=== PATIENT | male | born 1965 | race Caucasian/White ===

== ENCOUNTER → 2016-12-02 | Outpatient (CLI) | payer OTHER ==
[2016-12-02 16:07] LABS: HEMATOCRIT 47.4 % (37.9-51.0); HEMOGLOBIN 16.3 g/dL (13.5-17.0); HGB HCT DIFFERENCE 1.5; MEAN CORPUSCULAR HEMOGLOBIN 31.2 pg (27.0-33.4); MEAN CORPUSCULAR HGB CONC 34.3 g/dL (32.0-36.0); MEAN CORPUSCULAR VOLUME 91 fl (80-97); RED BLOOD COUNT 5.22 10^6/uL (4.35-5.55); RED CELL DISTRIBUTION WIDTH 13.7 % (11.5-14.0); WHITE BLOOD COUNT 8.9 10^3/uL (4.0-10.5)
[2016-12-02 16:23] LABS: ALANINE AMINOTRANSFERASE 38 U/L (21-72); ALBUMIN 4.5 g/dL (3.5-5.0); ALKALINE PHOSPHATASE 76 U/L (38-126); ANION GAP 12 (5-19); ASPARTATE AMINO TRANSFERASE 20 U/L (17-59); BILIRUBIN,DIRECT 0.3 mg/dL (0.0-0.4); BILIRUBIN,TOTAL 1.1 mg/dL (0.2-1.3); BLOOD UREA NITROGEN 20 mg/dL (7-20); CALCIUM 9.5 mg/dL (8.4-10.2); CARBON DIOXIDE 25 mmol/L (22-30); CHLORIDE 104 mmol/L (98-107); CREATININE RESULT 0.92 mg/dL (0.52-1.25); GLUCOSE 118 mg/dL (75-110); POTASSIUM 4.1 mmol/L (3.6-5.0); TOTAL PROTEIN 7.3 g/dL (6.3-8.2)
== END ==
LOC: OD 14:58
PROVIDERS: ATTEND Obstetrics & Gynecology
DX: Z09 Encounter for follow-up examination after completed treatment for conditions other than malignant neoplasm (principal); Z86.19 Personal history of other infectious and parasitic diseases
CPT/HCPCS: 36415; 80053; 85027; 86256; 86663; 86664; 86665

== ENCOUNTER → 2017-04-27 | Outpatient (CLI) | payer OTHER ==
[2017-04-27 15:42] LABS: ABSOLUTE EOSINOPHILS # (AUTO) 0.1 10^3/uL (0.0-0.6); ABSOLUTE LYMPHOCYTES (AUTO) 1.6 10^3/uL (0.5-4.7); ABSOLUTE MONOCYTES (AUTO) 0.7 10^3/uL (0.1-1.4); ABSOLUTE NEUT (AUTO) 5.9 10^3/uL (1.7-8.2); BASOPHILS % (AUTO) 0.3 % (0-2); HEMATOCRIT 46.9 % (37.9-51.0); HEMOGLOBIN 16.3 g/dL (13.5-17.0); LYMPHOCYTES % (AUTO) 19.1 % (13-45); MEAN CORPUSCULAR HEMOGLOBIN 31.6 pg (27.0-33.4); MEAN CORPUSCULAR HGB CONC 34.8 g/dL (32.0-36.0); MEAN CORPUSCULAR VOLUME 91 fl (80-97); RED BLOOD COUNT 5.17 10^6/uL (4.35-5.55); RED CELL DISTRIBUTION WIDTH 13.8 % (11.5-14.0); SEGMENTED NEUTROPHILS % (AUTO) 71.6 % (42-78); WHITE BLOOD COUNT 8.2 10^3/uL (4.0-10.5)
[2017-04-27 16:04] LABS: ALANINE AMINOTRANSFERASE 39 U/L (21-72); ALBUMIN 4.4 g/dL (3.5-5.0); ALKALINE PHOSPHATASE 79 U/L (38-126); ANION GAP 12 (5-19); ASPARTATE AMINO TRANSFERASE 22 U/L (17-59); BILIRUBIN,DIRECT 0.3 mg/dL (0.0-0.4); BLOOD UREA NITROGEN 23 mg/dL (7-20); CALCIUM 9.8 mg/dL (8.4-10.2); CARBON DIOXIDE 25 mmol/L (22-30); CHLORIDE 106 mmol/L (98-107); CREATININE RESULT 0.98 mg/dL (0.52-1.25); GLUCOSE 85 mg/dL (75-110); POTASSIUM 4.2 mmol/L (3.6-5.0); TOTAL PROTEIN 6.8 g/dL (6.3-8.2)
== END ==
LOC: OD 14:38
PROVIDERS: ATTEND Obstetrics & Gynecology
DX: K52.9 Noninfective gastroenteritis and colitis, unspecified (principal)
CPT/HCPCS: 36415; 80053; 83690; 85025; 87045; 87177; 87205; 87493

== ENCOUNTER 2018-12-12 07:30 | Day surgery (SDC) | payer OTHER ==
[~2018-12-12 07:30] MED LIST: VERAPAMIL HCL 5 MG, LIDOCAINE HCL/PF 4 ML, NORMAL SALINE 12 ML, NITROGLYCERIN/D5W 0.4 M... IV PRN
[2018-12-12] MEDS ORDERED: LIDOCAINE 1% INJ-PF (10 MG/ML) 30 ML SDV ONE (08:29)
[2018-12-12] MEDS ORDERED: HEPARIN SODIUM,PORCINE/NS/PF 2,000 UNIT/1,000 ML RTUINJ IV ONE (08:29)
[2018-12-12] MEDS ORDERED: MIDAZOLAM 2 MG/2 ML INJ ONE (08:40)
[2018-12-12] MEDS ORDERED: FENTANYL CITRATE INJ/PF 100 MCG/2 ML AMPUL ONE (08:40)
[2018-12-12] MEDS ORDERED: HEPARIN SOD (PORCINE) 1,000 UNIT/ML 10 ML VIAL ONE (08:41)
[2018-12-12] MEDS ORDERED: ASPIRIN 325 MG TABLET PO PRN (08:51)
[2018-12-12] MEDS ORDERED: DIAZEPAM 5 MG TABLET PO PRN (08:52)
[2018-12-12] MEDS ORDERED: DIPHENHYDRAMINE HCL 25 MG CAPSULE PO PRN (08:53)
[2018-12-12] MEDS ORDERED: DIAZEPAM 5 MG TABLET ONE (09:39)
[2018-12-12] MEDS ORDERED: ASPIRIN 325 MG TABLET ONE (09:39)
[2018-12-12] MEDS ORDERED: DIPHENHYDRAMINE HCL 25 MG CAPSULE ONE (09:39)
--- NOTE | 2018-12-12 11:04 | Operative Report ---
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 PROCEDURE NOTES: Left heart catheterization, bilateral selective coronary angiography, left ventricular CINE angiography. After informed consent was obtained the patient was brought into the cardiac catheterization lab. Sterile prep and drape of the right radial / wrist area was carried out followed by infiltration with 1% Xylocaine. Using the percutaneous Seldinger technique, a 6 Sinhala Introducer sheath was placed into the right radial artery. Selective left and right coronary angiography was performed with a 5 Sinhala Barbeau pre-formed coronary catheter. The catheter was subsequently introduced in the artery and advanced to the ascending aorta. The aortic valve was crossed and the left ventricle was entered. Repeated measurements of the left heart pressure were made after injection of the contrast agent as used for left ventricle CINE-ography. The cathter was removed without incidence. ANALYSIS OF THE ANGIOGRAM: Selective CINE angiograms were obtained with the injection of contrast material into the left and right coronary ostium and left ventricular cavity. The left ventricular injection demonstrates . Ejection fraction is 55-60% . No evidence for aortic stenosis with normal pull back and no gradient across the Aortic Valve. No significant mitral regurgiation seen. CORONARY ANGIOGRAPHY: Coronary angiography performed in multiple projections revealed the following; LEFT MAIN: Moderate caliber vessel that appears angiographically normal without any significant stenosis. LEFT CIRCUMFLEX/OBTUSE MARGINAL: Moderate caliber vessel and appears angiographically patent with principle obtuse marginal branch. LEFT ANTERIOR DESCENDING/DIAGONAL: Moderate caliber vessel. It appears angiographically patent. All diagonal branches also appears angiographically patent. RIGHT CORONARY ARTERY: Moderate caliber vessel that is dominant in nature and appears angiographically patent without evidence for significant stenosis. Moderate Conscious sedation was carried out intraprocedure for 15 minutes with continuous oxygen saturation, continuous telemetry monitoring without incidence. The Radial Arterial sheath was removed and a TR Band applied with adequate hemostasis. Impression: Normal Cardiac Catheterization with angiographically patent coronaries and preserved EF. Plna: Risk Factor Modification. cc: Dr. Aj Gould - [facility]ly [facility] in [place], [place] cc: Dr. Jagdeep Zamudio , PCP in [place], [place]
[2018-12-12 13:26] VITALS: BP 116/68
== END 2018-12-12 13:24 | disposition home or self-care (01) ==
LOC: CCL 07:30
PROVIDERS: ATTEND Internal Medicine Cardiovascular Disease
DX: I25.10 Atherosclerotic heart disease of native coronary artery without angina pectoris (principal); I10 Essential (primary) hypertension; F17.210 Nicotine dependence, cigarettes, uncomplicated; R94.31 Abnormal electrocardiogram [ECG] [EKG]; I77.1 Stricture of artery; Z82.49 Family history of ischemic heart disease and other diseases of the circulatory system; Z79.82 Long term (current) use of aspirin
CPT/HCPCS: 93458; C1887; J2250; J3010; J1644 ×2; J3490 ×5

== ENCOUNTER → 2019-03-12 | Outpatient (CLI) | payer OTHER ==
--- NOTE | 2019-03-12 09:51 | RADIOLOGY REPORT (SQ) ---
EXAM DESCRIPTION: ABDOMEN 2 VIEWS COMPLETED DATE/TIME: 03/12/2019 9:38 am REASON FOR STUDY: IBS; S/P C DIFF; ABD. PAIN COMPARISON: None. NUMBER OF VIEWS: Two views. TECHNIQUE: Supine and erect/decubitus radiographic images of the abdomen acquired. LIMITATIONS: None. FINDINGS: FREE AIR: None. No abnormal gas collections. LUNG BASES: Clear. BOWEL GAS PATTERN: Nonobstructive pattern. No dilated loops or air fluid levels. CALCIFICATIONS: No suspicious calcifications. SOFT TISSUES: No gross mass or suggestion of organomegaly. HARDWARE: None in the abdomen. BONES: No acute fracture. No worrisome bone lesions. OTHER: No other significant finding. IMPRESSION: NO RADIOGRAPHIC EVIDENCE FOR ACUTE ABDOMINAL DISEASE. TECHNICAL DOCUMENTATION: JOB ID: [id number] [employer]- All Rights Reserved Reading location - IP/workstation name: [email or web address]
[2019-03-12 15:14] LABS: C DIFFICILE GDH NEGATIVE (NEGATIVE)
[2019-03-14 07:15] LABS: EPSTEIN BARR EARLY AG IGG AB 78.8 U/mL (0.0-8.9); EPSTEIN BARR VCA IGG AB >600.0 U/mL (0.0-17.9); EPSTEIN BARR VCA IGM AB <36.0 U/mL (0.0-35.9)
== END ==
LOC: OD 09:08
PROVIDERS: ATTEND Obstetrics & Gynecology
DX: K58.9 Irritable bowel syndrome, unspecified (principal); R10.9 Unspecified abdominal pain
CPT/HCPCS: 36415; 74019; 86256; 86663; 86664; 86665; 87045; 87205; 87324; 87449

== ENCOUNTER 2019-10-30 06:48 | Observation (INO) | payer OTHER ==
[2019-10-25 10:51] LABS: HEMATOCRIT 46.8 % (37.9-51.0); HEMOGLOBIN 16.6 g/dL (13.5-17.0); MEAN CORPUSCULAR HEMOGLOBIN 31.9 pg (27.0-33.4); MEAN CORPUSCULAR HGB CONC 35.5 g/dL (32.0-36.0); MEAN CORPUSCULAR VOLUME 90 fl (80-97); PLATELET COUNT 238 10^3/uL (150-450); RED CELL DISTRIBUTION WIDTH 14.3 % (11.5-14.0); WHITE BLOOD COUNT 6.7 10^3/uL (4.0-10.5)
--- NOTE | 2019-10-25 10:55 | RADIOLOGY REPORT (SQ) ---
EXAM DESCRIPTION: CHEST PA/LATERAL IMAGES COMPLETED DATE/TIME: 10/25/2019 10:46 am REASON FOR STUDY: PRE-OP COMPARISON: None. EXAM PARAMETERS: NUMBER OF VIEWS: Two views. TECHNIQUE: PA and lateral views of the chest were obtained. RADIATION DOSE: NA. LIMITATIONS: None. FINDINGS: LUNGS AND PLEURA: No consolidation, pleural effusion or pneumothorax. MEDIASTINUM AND HILAR STRUCTURES: No mediastinal or hilar contour abnormality. HEART AND VASCULAR STRUCTURES: The cardiac silhouette and pulmonary vasculature are within normal morgan its. BONES: No acute findings. HARDWARE: None in the chest. OTHER: No other finding. IMPRESSION: No acute cardiopulmonary process. TECHNICAL DOCUMENTATION: JOB ID: [id number] [employer]- All Rights Reserved Reading location - IP/workstation name: [email or web address]
[2019-10-25 11:19] LABS: ALBUMIN 4.6 g/dL (3.5-5.0); ALKALINE PHOSPHATASE 85 U/L (38-126); AMYLASE 48 U/L (30-110); ANION GAP 9 (5-19); ASPARTATE AMINO TRANSFERASE 25 U/L (17-59); BILIRUBIN,TOTAL 1.2 mg/dL (0.2-1.3); BLOOD UREA NITROGEN 19 mg/dL (7-20); CALCIUM 9.5 mg/dL (8.4-10.2); CARBON DIOXIDE 23 mmol/L (22-30); CHLORIDE 104 mmol/L (98-107); GLUCOSE 109 mg/dL (75-110); POTASSIUM 4.2 mmol/L (3.6-5.0); TOTAL PROTEIN 7.2 g/dL (6.3-8.2)
--- NOTE | 2019-10-25 20:24 | EKG REPORT ---
SEVERITY:- ABNORMAL ECG - SINUS RHYTHM LEFT BUNDLE BRANCH BLOCK : Confirmed by: Abel Martell MD 25-Oct-2019 20:23:08
[~2019-10-30 06:48] MED LIST changes: +ACETAMINOPHEN 325 MG TABLET PO PRN; +CLINDAMYCIN 600 MG/D5W RTU 600 MG/50 ML RTUPB IV PRN; +LACTATED RINGERS 1000 ML IV PRN; +LIDOCAINE 0.5% INJ-PF (5 MG/ML) 50 ML SDV SUBCUT PRN; -VERAPAMIL HCL 5 MG, LIDOCAINE HCL/PF 4 ML, NORMAL SALINE 12 ML, NITROGLYCERIN/D5W 0.4 M... IV PRN
[2019-10-30] MEDS ORDERED: CLINDAMYCIN 600 MG/D5W RTU 600 MG/50 ML RTUPB IV ONE (06:51)
[2019-10-30] MEDS ORDERED: MIDAZOLAM 2 MG/2 ML INJ ONE (07:04)
[2019-10-30] MEDS ORDERED: FENTANYL CITRATE INJ/PF 250 MCG/5 ML AMPULE ONE (07:04)
[2019-10-30] MEDS ORDERED: EPHEDRINE SULFATE INJ 50 MG/1 ML AMPULE ONE (07:04)
[2019-10-30] MEDS ORDERED: PROPOFOL INJ 200 MG/20 ML VIAL IV ONE (07:04)
[2019-10-30] MEDS ORDERED: BUPIVACAINE HCL 0.25 % INJ/PF (2.5 MG/1 ML) 30 ML VIAL ONE (07:52)
[2019-10-30] MEDS ORDERED: DIPHENHYDRAMINE HCL 50 MG/ML VIAL IV PRN (09:42)
[2019-10-30] MEDS ORDERED: MEPERIDINE HCL/PF INJ 25 MG/1 ML DISP.SYRIN IV PRN (09:42)
[2019-10-30] MEDS ORDERED: FENTANYL CITRATE INJ/PF 100 MCG/2 ML AMPUL IV PRN ×3 (09:42)
[2019-10-30] MEDS ORDERED: PROMETHAZINE HCL INJ 25 MG/1 ML VIAL IV PRN ×2 (09:42)
[2019-10-30] MEDS ORDERED: OXYCODONE-ACETAMINOPHEN 5-325 MG TABLET PO PRN ×3 (09:42→14:23)
--- NOTE | 2019-10-30 10:15 | Operative Report ---
Operative Report DATE OF SURGERY: 10/30/19 PREOPERATIVE DIAGNOSIS: 1. Symptomatic cholelithiasis with cholecystitis. 2. Previous open pyloromyotomy. 3. Umbilical hernia POSTOPERATIVE DIAGNOSIS: Same with intra-abdominal adhesions OPERATION: 1. Laparoscopic cholecystectomy. 2. Oversewing of serosal violation of first portion of duodenum. 3. Umbilical herniorrhaphy, open SURGEON: HARINI LOZANO 1ST COMPUTER PERIPHERAL EQUIPMENT OPERATOR: TATE [address] ANESTHESIA: GA TISSUE REMOVED OR ALTERED: Gallbladder with stones COMPLICATIONS: None ESTIMATED BLOOD LOSS: Scant INTRAOPERATIVE FINDINGS: See below PROCEDURE: The patient was taken from the preop holding arear to the main operating room where general anesthesia was induced. The abdomen was exposed, prepped and draped sterile fashion with Betadine. Instrumentation was set up for laparoscopic cholecystectomy. Surgical plan and surgical timeout were conducted. The abdomen was exposed, noted to have a small umbilical hernia, and scar right paramedian, curvilinear consistent with previous pyloromyotomy. Markings were m sandra on the skin for for port laparoscopy. Skin was anesthetized 1% plain lidocaine at all 4 sites. A supraumbilical curvilinear incision was made with a 15 blade, and dissection was taken down to the umbilical hernia. The opening in the fascia was identified, and a 5 mm port was inserted into the peritoneal space without difficulty. Pneumoperitoneum was established, and 3 additional ports were placed, one 5 mm in the sub-xiphoid position, and 2 in the subcostal position. Visualization revealed the right lobe of the liver was adhesed to the anterior abdominal wall due to adhesions. The gallbladder was affixed to the undersurface of the liver in the usual fashion, however there were dense adhesions between the gallbladder, the greater omentum, and eventually identified as the first portion of the duodenum. Retractors were placed on the gallbladder and is elevated in a cephalad direction. The patient was placed in steep reverse Trendelenburg position. Adhesions were taken down with hook cautery and scissor dissection. During this process, a small rent was made in the anterior surface of the first portion of the duodenum. This was serosal, and partial muscular in thickness. There was no penetration into the lumen of the duodenum as there was no release of fluids or bile. This area was inspected carefully and allowed to remain as is for attention later. Adhesio lysis continued until the gallbladder was free from surrounding structures. We now approached the gallbladder removal from the fundus downward. Retractors were repositioned, and the dissection was undertaken in a methodical fashion with excellent visualization. Eventually we have the gallbladder suspended about the cystic artery and the cystic duct. Photos were taken. Fibrinous adhesions were taken down, the cystic artery was dissected out, photographed, and clipped twice proximally once distally divided with scissors. The gallbladder was now suspended solely from the cystic duct. Photos were taken. The cystic duct was clipped on the gallbladder side, opened and milked of any stones and there was only some sludge. The cystic duct was clipped proximally 2 times and then divided, and the gallbladder was passed off to the side. At this point I brought to Dr. Matias Wesley into the operating room to inspect the rent in the duodenal wall. He agreed that reinforcement would be appropria te. Therefore we now placed 5th port, in the left lower quadrant, and brought onto the field a truncated 2-0 silk suture, CV needle, straightened manually to allow entry through a 5 mm port. We proceeded to reinforce the rent with a bjmrjk-qb-[id number] suture ligature. I now brought a second 2-0 silk onto the field and placed this just above the [id number]-xi-jzczd suture. The rent was closed in a vertically oriented fashion. Conclusion photos were taken. At no point did we feel there was of violation of the duodenal lumen. No drain was indicated. We now remove the gallbladder by placing it in the Endobag placed through the supraumbilical port site. Specimen was sent to pathology. We checked for bleeding there was none. Sponge and needle counts are correct. We then inspected our alejandro and they were felt to be in satisfactory position and photos were taken. We irrigated peritoneal cavity out, evacuated pneumoperitoneum, and now cleaned up the periumbilical skin from the underlying fascia. The umbilical hernia was now closed with 2 [id number]-[id number] 0 Vicryl sutures. The umbilicus was brought back down with 2-0 Vicryl suture, and all wounds closed after port removal with 3-0 Vicryl suture. Benzoin and Steri-Strips applied. A bulky dressing was applied over the umbilicus. The patient tolerated the procedure well, extubated, taken recovery in stable condition. The physician bilingual medical assistant, Ms. Lau, provided assistance during this case by: Assisting and port insertion, retracting tissue, instillation of local anesthesia and closure of skin incisions.
--- NOTE | 2019-10-30 10:18 | Discharge Summary ---
Discharge Summary (SDC) - Discharge Final Diagnosis: cholelithiasis Date of Surgery: 10/30/19 Discharge Date: 10/30/19 Condition: Good Forms: ASU Anesthesia D/C Instruction, Discharge POC-Surgical Service Treatment or Instructions: [facility] [address], [place] [address] Discharge Instructions: Laparoscopic Surgery 1. General Information: a. DO NOT DRIVE a car or operate dangerous machinery for 3-4 days or while taking narcotic pain pills. b. DO NOT consume alcohol, tranquilizers, sleeping medications or any non- prescribed medications for 24 hours unless approved by your doctor or as long as taking narcotic prescription medications. c. DO NOT make important decisions or sign any important papers for the first 24 hours after surgery. d. When discharged home the same day of surgery have a responsible person with you for the first night. 2. Activity Restrictions: NO LIFTING OVER 10 LBS FOR 4 weeks. a. NO heavy lifting, straining abdominal muscles, bending over a lot, yard work, house work, or sports for [address] NOT [address] for 3-4 days. c. It is fine to go for walks, up and down steps, ride in a car. d. Elevate your head when sleeping/resting. 3. Treatment: a. You may shower 48 hours after surgery, no baths or swimming for 2 weeks. Remove band-aids or dressings before shower but leave paper strips (steri- strips) on the skin to fall off on their own. If still on at postoperative visit they will be removed then. b. Drainage of fluid or blood is not unusual from an incision. If occurs, you can clean with peroxide and cotton ball daily and cover with dry gauze until the wound seals. c. If a lot of bleeding occurs, you can hold pressure with a gauze or cloth over the site for 10 minutes and it will usually stop. If bleeding continues you will need to call for possible evaluation in office or emergency room. 4. Medications: b. You should resume all normal medications unless a change is specified by your doctors. 5. Diet: Begin with clear liquids and may progress to your normal diet if not nauseated. No high fat, high protein foods the day of surgery. 6. The following may occur after laparoscopic surgery: a. Shoulder or upper back ache from retained gas that should resolve in 1-2 days b. Soreness and bruising at incision sites will resolve with time. c. Scrotal swelling (labia in women) and bruising is often seen after hernia surgery. d. Sore throat e. Fatigue may last days to weeks. f. Difficulty urinating may occur and may need to come into emergency room for urinary catheter placement. 7. Notify Physician If: a. Worsening or pain not improved with pain medication b. Persistent nausea and vomiting c. Fever above 101 d. Persistent bleeding or swelling at operative site e. Unable to urinate and uncomfortable bladder 6-8 hours after surgery 8..Follow Up Care: a. Schedule a follow up appointment with your doctor for 2 weeks. In the event of any postoperative problems or questions or you may call the office during business hours or the On-Call physician evenings and weekends at [facility]. [facility] I understand the instructions for my postoperative care as described above and a copy has been given to me. Patient/Significant Other Witness Date Referrals: HARINI LOZANO MD [ACTIVE STAFF] - 11/11/19 8:45 am (Cristal Pollard [facility]) Discharge Diet: Other (Comments) - small bland portions then progress Discharge Activity: Balance Activity w/Rest, No Lifting Over 10 Pounds, No L ifting/Push/Pulling, Walk Frequently Report the Following to Your Physician Immediately: Nausea, Vomiting, Increase in Pain, Fever over 101 Degrees, Unusual Bleeding, Redness, Swelling, Warmth, Increased Soreness, Drainage-Foul Smelling
[2019-10-30] MEDS: FENTANYL CITRATE INJ/PF 100 MCG/2 ML AMPUL ONE ×2 (10:43→10:50)
[2019-10-30] MEDS: MORPHINE SULFATE 10 MG/ML INJ ONE ×2 (10:57→11:00)
[2019-10-30] MEDS ORDERED: OXYCODONE-ACETAMINOPHEN 5-325 MG TABLET ONE ×2 (11:28→12:35)
[2019-10-30] MEDS ORDERED: SIMETHICONE 80 MG TAB.CHEW ONE (12:14)
[2019-10-30] MEDS ORDERED: ONDANSETRON HCL INJ/PF 4 MG/2 ML SDV ONE (13:39)
[2019-10-30] MEDS ORDERED: KETOROLAC TROMETHAMINE 60 MG/2 ML SDV ONE (13:39)
[2019-10-30] MEDS ORDERED: GLYCOPYRROLATE 1 MG/5 ML VIAL ONE (13:39)
[2019-10-30] MEDS ORDERED: DEXAMETHASONE SOD PHOSPHATE INJ 4 MG/1 ML VIAL ONE (13:39)
[2019-10-30] MEDS ORDERED: ROCURONIUM BROMIDE INJ 50 MG/5 ML VIAL IV ONE (13:39)
[2019-10-30] MEDS ORDERED: SUCCINYLCHOLINE CHLORIDE INJ 200 MG/10 ML VIAL ONE (13:39)
[2019-10-30] MEDS ORDERED: NEOSTIGMINE METHYLSULFATE 10 MG/10 ML VIAL ONE (13:39)
[2019-10-30] MEDS ORDERED: MORPHINE SULFATE 10 MG/ML INJ ONE (14:12)
[2019-10-30] MEDS: OXYCODONE-ACETAMINOPHEN 5-325 MG TABLET PO PRN ×2 (16:32→20:31)
[2019-10-30] MEDS ORDERED: MAGNESIUM HYDROXIDE SUSP 30 ML UDCUP PO PRN (23:42)
[2019-10-30] MEDS: KETOROLAC TROMETHAMINE INJ/PF 30 MG/1 ML SDV IV PRN (23:47)
[2019-10-31] MEDS: OXYCODONE-ACETAMINOPHEN 5-325 MG TABLET PO PRN ×3 (03:03→13:34)
[2019-10-31] MEDS ORDERED: DEXTROSE 50%-WATER 25 GM/50 ML DISP.SYRIN IV PRN ×2 (07:36)
[2019-10-31] MEDS ORDERED: DEXTROSE 40% GEL 15 GM TUBE PO PRN ×2 (07:36)
[2019-10-31] MEDS ORDERED: GLUCAGON,HUMAN RECOMB 1 MG INJ SUBCUT PRN (07:36)
[2019-10-31] MEDS ORDERED: RINGERS SOLUTION,LACTATED 1,000 ML IV PRN (07:36)
--- NOTE | 2019-10-31 07:42 | PDOC PROGRESS REPORT ---
Subjective Progress Note for:: 10/31/19 Reason For Visit: K80.20 CALCULUS OF GALLBLADDER W/O CHOLECYSTITIS W Patient is a 54-year-old white male with history of chronic pain syndrome who underwent laparoscopic cholecystectomy with repair of umbilical hernia by Dr. Pitts yesterday morning. Because of persisting abdominal pain that could not be satisfactorily managed with oral pain medication the patient was admitted overnight for observation. Overnight the patient remained hemodynamically stable, however continued to have abdominal pain despite receiving of variety of pain medications. This morning still complaining of abdominal pain no better. He did get up ambulate last night. Physical Exam Vital Signs: Temp Pulse Resp BP Pulse Ox 98.1 F 112 H 18 111/64 93 10/31/19 00:06 10/31/19 00:06 10/31/19 00:06 10/31/19 00:06 10/31/19 00:06 Intake & Output 10/30/19 10/31/19 11/01/19 06:59 06:59 06:59 Intake Total 2338 Output Total 20 Balance 2318 Weight 89.1 kg General appearance: PRESENT: other - Patient does not appear to be in acute distress. His heart rate this morning is over 100 approximately 110. Mouth exam: PRESENT: other - Mucous membranes dry GI/Abdominal exam: PRESENT: other - All dressings are dry and intact. The abdomen is soft and not particularly distended, however tender more on the right side than the left with some guarding. Neurological exam: PRESENT: oriented to person, oriented to place, oriented to time, oriented to situation Skin exam: PRESENT: dry Results Laboratory Results: 10/25/19 10:30 10/25/19 10:30 Impressions: Chest X-Ray 10/25/19 10:05 IMPRESSION: No acute cardiopulmonary process. Assessment & Plan - Diagnosis (1) Status post laparoscopic cholecystectomy Is this a current diagnosis for this admission?: Yes Plan: Impression: Status post laparoscopic cholecystectomy, repair of umbilical hernia Monday, October 29, with postoperative pain out of proportion to expectations based on magnitude surgery. Recommendations: 1. We will keep patient in hospital until current issue resolved; keep n.p.o. and resume IV fluids 2. We will check CBC SMA-7, and reassess later this morning. - Time Time Spent: 30 to 50 Minutes
[2019-10-31] MEDS: KETOROLAC TROMETHAMINE INJ/PF 30 MG/1 ML SDV IV PRN ×2 (07:58→14:59)
[2019-10-31 09:10] LABS: HEMOGLOBIN 14.3 g/dL (13.5-17.0); MEAN CORPUSCULAR HEMOGLOBIN 31.4 pg (27.0-33.4); MEAN CORPUSCULAR HGB CONC 34.8 g/dL (32.0-36.0); MEAN CORPUSCULAR VOLUME 90 fl (80-97); PLATELET COUNT 201 10^3/uL (150-450); RED BLOOD COUNT 4.55 10^6/uL (4.35-5.55); RED CELL DISTRIBUTION WIDTH 14.5 % (11.5-14.0); WHITE BLOOD COUNT 12.5 10^3/uL (4.0-10.5)
[2019-10-31 09:21] LABS: ANION GAP 8 (5-19); BLOOD UREA NITROGEN 20 mg/dL (7-20); CALCIUM 8.7 mg/dL (8.4-10.2); CARBON DIOXIDE 23 mmol/L (22-30); CHLORIDE 100 mmol/L (98-107); GLUCOSE 122 mg/dL (75-110); POTASSIUM 3.9 mmol/L (3.6-5.0)
[2019-10-31 09:23] LABS: ABSOLUTE LYMPHOCYTES# (MANUAL) 0.5 10^3/uL (0.5-4.7); ABSOLUTE MONOCYTES # (MANUAL) 0.5 10^3/uL (0.1-1.4); BASOPHILS % (MANUAL) 0 % (0-2); EOSINOPHILS % (MANUAL) 0 % (0-6); LYMPHOCYTES % (MANUAL) 4 % (13-45); MONOCYTES % (MANUAL) 4 % (3-13); SEGMENTED NEUTROPHILS % (MAN) 92 % (42-78); TOTAL CELLS COUNTED 100
[2019-10-31 09:24] LABS: ANISOCYTOSIS SLIGHT; PLATELET CLUMPS PRESENT; PLATELET COMMENT ADEQUATE
[2019-10-31 09:25] LABS: HYPOCHROMASIA SLIGHT; OVALOCYTES SLIGHT; POIKILOCYTOSIS SLIGHT
--- NOTE | 2019-10-31 13:28 | RADIOLOGY REPORT (SQ) ---
EXAM DESCRIPTION: CT ABD/PELVIS WITH IV ORAL IMAGES COMPLETED DATE/TIME: 10/31/2019 12:42 pm REASON FOR STUDY: Rule out postoperative intestinal leak K80.20 CALCULUS OF GALLBLADDER W/O CHOLECY STITIS W/O OBSTRUC COMPARISON: 09/19/2007 CT abdomen and pelvis TECHNIQUE: CT scan of the abdomen and pelvis performed using helical scanning technique with dynamic intravenous contrast injection. No oral contrast. Images reviewed with lung, soft tissue, and bone windows. Reconstructed coronal and sagittal MPR images reviewed. Delayed images for evaluation of the urinary system also acquired. All images stored on PACS. All CT scanners at this facility use dose modulation, iterative reconstruction, and/or weight based d osing when appropriate to reduce radiation dose to as low as reasonably achievable (ALARA). [facility]: Dose Right [facility]: CareDose [facility]: Dose Right [facility]: Teradose 4D [facility]: FastPay CONTRAST TYPE AND DOSE: 100 mL Omnipaque 350- low osmolar. RENAL FUNCTION: BUN 20; creatinine 0.87 RADIATION DOSE: CT Rad equipment meets quality standard of care and radiation dose reduction techniq ues were employed. CTDIvol: 11.7 - 11.8 mGy. DLP: 1452 mGy-cm.. LIMITATIONS: None. FINDINGS: LOWER CHEST: Bibasilar atelectasis. No pleural effusion. LIVER: Hepatic steatosis. No mass or intrahepatic biliary dilatation. SPLEEN: Normal size. No focal lesions. PANCREAS: No masses. No significant calcifications. No adjacent inflammation or peripancreatic fluid collections. Pancreatic duct not dilated. GALLBLADDER: Status post cholecystectomy with surgical clips seen in the gallbladder fossa. The pres ence of fluid is not entirely unexpected and likely represents surgical residua. ADRENAL GLANDS: No significant masses or asymmetry. RIGHT KIDNEY AND URETER: No solid masses. No significant calcifications. No hydronephrosis or hyd roureter. LEFT KIDNEY AND URETER: No solid masses. No significant calcifications. No hydronephrosis or hydr oureter. AORTA AND VESSELS: No aneurysm. No dissection. Renal arteries, SMA, celiac without stenosis. RETROPERITONEUM: No mass, lymphadenopathy, or hemorrhage. BOWEL AND PERITONEAL CAVITY: Enteric contrast is seen to the level of the ascending colon. No focal inflammatory changes or obstruction is demonstrated. Incidental finding of a duodenum diverticulum i nvolving the 2nd portion of the duodenum ; this is an unchanged finding relative to 09/19/2007 CT imag ing. A tiny crescent of pneumoperitoneum seen adjacent to the liver is not unexpected 24 hours out f rom laparoscopic surgery. APPENDIX: Normal. PELVIS: No mass. No free fluid. Normal bladder. ABDOMINAL WALL: A tiny focus of gas seen anti dependently at the level of the emboli kiss is consiste nt with residual gas on the basis of umbilical trocar. BONES: No significant or acute findings. OTHER: No other significant finding. IMPRESSION: 1. 24 hours status post laparoscopic cholecystectomy with expected postsurgical finding s. 2. Incidental finding of a duodenum diverticulum, unchanged from September 2007 CT imaging. TECHNICAL DOCUMENTATION: JOB ID: [id number] Quality ID # [id number]: Final reports with documentation of one or more dose reduction techniques (e.g., Au tomated exposure control, adjustment of the mA and/or kV according to patient size, use of iterative reconstruction technique) 2010 [employer]- All Rights Reserved Reading location - IP/workstation name: [email or web address]
[2019-10-31 16:23] VITALS: BP 111/64
== END 2019-10-31 16:55 | disposition home or self-care (01) ==
LOC: OROUT 06:48 → 4W 14:20
PROVIDERS: ADMIT Surgery; ATTEND Surgery
DX: K80.20 Calculus of gallbladder without cholecystitis without obstruction (principal); K42.9 Umbilical hernia without obstruction or gangrene; K66.0 Peritoneal adhesions (postprocedural) (postinfection); F17.210 Nicotine dependence, cigarettes, uncomplicated; K81.1 Chronic cholecystitis; G89.4 Chronic pain syndrome; Z03.818 Encounter for observation for suspected exposure to other biological agents ruled out; Z88.0 Allergy status to penicillin; Z79.899 Other long term (current) drug therapy
CPT/HCPCS: 93005; 36415 ×2; 82150; 85025; 85027; 87635; 80076; 80048 ×2; 88304 ×2; 71046; 74177; 93010; 00790; 49585; 47562; G0378 ×2; J2250; J3490 ×4; J1100; J1885 ×3; J3010 ×2; J2270; J2710; J0330; J2405; J7120; J2704; C9803; 790

== ENCOUNTER → 2020-04-03 | Outpatient (CLI) | payer OTHER ==
[2020-04-03 11:17] LABS: ABSOLUTE EOSINOPHILS # (AUTO) 0.1 10^3/uL (0.0-0.6); ABSOLUTE LYMPHOCYTES (AUTO) 1.1 10^3/uL (0.5-4.7); ABSOLUTE MONOCYTES (AUTO) 0.6 10^3/uL (0.1-1.4); ABSOLUTE NEUT (AUTO) 5.6 10^3/uL (1.7-8.2); BASOPHILS % (AUTO) 0.2 % (0-2); EOSINOPHILS % (AUTO) 1.4 % (0-6); HEMATOCRIT 48.5 % (37.9-51.0); LYMPHOCYTES % (AUTO) 15.3 % (13-45); MEAN CORPUSCULAR HEMOGLOBIN 31.5 pg (27.0-33.4); MEAN CORPUSCULAR HGB CONC 34.9 g/dL (32.0-36.0); MEAN CORPUSCULAR VOLUME 90 fl (80-97); MONOCYTES % (AUTO) 7.6 % (3-13); PLATELET COUNT 264 10^3/uL (150-450); RED BLOOD COUNT 5.37 10^6/uL (4.35-5.55); RED CELL DISTRIBUTION WIDTH 13.5 % (11.5-14.0); SEGMENTED NEUTROPHILS % (AUTO) 75.5 % (42-78); TOTAL CELLS COUNTED % (AUTO) 100 %; WHITE BLOOD COUNT 7.5 10^3/uL (4.0-10.5)
== END ==
LOC: OD 10:19
PROVIDERS: ATTEND Obstetrics & Gynecology
DX: K52.9 Noninfective gastroenteritis and colitis, unspecified (principal); D72.819 Decreased white blood cell count, unspecified
CPT/HCPCS: 36415; 85025; 87045; 87205